=== PATIENT | male | born 1995 | race Caucasian/White ===

== ENCOUNTER 2020-11-02 23:32 | Emergency (ER) | payer OTHER ==
[2020-11-03] MEDS ORDERED: CEPHALEXIN500 M1 PO (00:45)
[2020-11-03] MEDS ORDERED: NORCO 5-325 TA1 EACH PO (00:45)
== END 2020-11-03 01:13 | disposition home or self-care (01) ==
LOC: FER 23:32
DX: S61.432A Puncture wound without foreign body of left hand, initial encounter (principal); W34.00XA Accidental discharge from unspecified firearms or gun, initial encounter; Y92.009 Unspecified place in unspecified non-institutional (private) residence as the place of occurrence of the external cause
CPT/HCPCS: 99283